=== PATIENT | female | born 1960 | race Caucasian/White ===

== ENCOUNTER 2016-09-22 09:18 | Day surgery (SDC) | payer BC ==
[2016-09-19 16:07] VITALS: BMI 28.4
--- NOTE | 2016-09-22 11:46 | OP ---
Operative Note - Note: Operative Date: 09/22/16 Pre-Operative Diagnosis: Right knee arthrofibrosis Operation: LUIS ANTONIO right knee Post-Operative Diagnosis: Same as Pre-op Surgeon: Rip Butcher Anesthesia: General Operative Report Dictated: Yes
--- NOTE | 2016-09-22 11:47 | DS ---
Physical Examination Vital Signs: Vital Signs Temperature 98.1 F 09/22/16 10:11 Pulse Rate 80 09/22/16 10:11 Respiratory Rate 19 09/22/16 10:11 Blood Pressure 131/79 09/22/16 10:11 O2 Sat by Pulse Oximetry (%) 98 09/22/16 10:11 Discharge Summary Reason For Visit: ARTHROFIBROSIS RIGHT KNEE Condition: Good - Instructions Diet, Activity, Other Instructions: Activity as tolerated Pain medication as tolerated Disposition: HOME - Home Medications Comprehensive Discharge Medication List: Ambulatory Orders Celecoxib [Celebrex] 100 mg PO DAILY PRN 09/19/16 Glucosamine HCl/Chondr Hsu A Na [Osteo Bi-Flex Caplet] 1 each PO BID 09/19/16
[2016-09-22] MEDS ORDERED: ONDANSETRON 4 MG/2 ML VIAL ONE (11:59)
[2016-09-22] MEDS ORDERED: ONDANSETRON 4 MG/2 ML VIAL IVPUSH ONE (12:02)
[2016-09-22] MEDS ORDERED: oxyCODONE HCL 5 MG TABLET ONE ×2 (12:58→13:21)
[2016-09-22 16:43] VITALS: BP 123/82; PULSE 77; TEMP 98
== END 2016-09-22 14:10 | disposition home or self-care (01) ==
LOC: FASU 09:18
PROVIDERS: ATTEND Orthopaedic Surgery
PROC: 0SNCXZZ Release Right Knee Joint, External Approach (ICD-10-PCS; principal; 2016-09-22 11:01)
DX: M24.661 Ankylosis, right knee (principal)
CPT/HCPCS: 94760

== ENCOUNTER 2023-12-26 06:08 | Day surgery (SDC) | payer BC ==
[2023-12-20 15:51] VITALS: BMI 27.6
[2023-12-26] MEDS ORDERED: ceFAZolin SODIUM 1 GM VIAL ONE (07:04)
[2023-12-26] MEDS ORDERED: TRANEXAMIC ACID 1000 MG/10 ML VIAL ONE ×2 (07:04→08:17)
[2023-12-26] MEDS ORDERED: PROPOFOL 20 ML ONE ×2 (07:04→09:30)
[2023-12-26] MEDS ORDERED: MIDAZOLAM HCL 2 MG/2 ML SINGLE DOSE VIAL ONE ×2 (07:05→08:33)
[2023-12-26] MEDS ORDERED: LIDOCAINE HCL/PF 2% SDV 5ML VIAL ONE (07:05)
[2023-12-26] MEDS ORDERED: BUPIVACAINE LIPOSOME/PF (EXPAREL) 266 MG/20 ML VIAL ONE (07:22)
[2023-12-26] MEDS ORDERED: BUPIVACAINE HCL/PF 0.5% (5 MG/ML) 30 ML VIAL IJ ONE (07:22)
[2023-12-26] MEDS ORDERED: BUPIVACAINE HCL/PF 0.5% (5MG/ML) 10 ML VIAL ONE (07:22)
[2023-12-26] MEDS ORDERED: ACETAMINOPHEN INJECTION 100 ML ONE (07:22)
[2023-12-26] MEDS ORDERED: ONDANSETRON 4 MG/2 ML VIAL ONE ×2 (08:17→08:18)
[2023-12-26] MEDS ORDERED: DEXAMETHASONE SOD PHOSPHATE 4 MG/1 ML VIAL ONE (08:17)
[2023-12-26] MEDS ORDERED: KETOROLAC TROMETHAMINE 30 MG/1 ML VIAL ONE (08:18)
[2023-12-26] MEDS ORDERED: MAG HYDROX/AL HYDROX/SIMETH 30 ML UNIT-DOSE CUP PO PRN (10:38)
[2023-12-26] MEDS ORDERED: MAGNESIUM HYDROX 2400MG/30ML ORAL SUSPENSION 30 ML CUP PO PRN (10:38)
[2023-12-26] MEDS ORDERED: ONDANSETRON 4 MG/2 ML VIAL IVPUSH PRN ×2 (10:38→10:40)
[2023-12-26] MEDS: SODIUM CHLORIDE 1,000 ML IV SCH (11:07)
[2023-12-26] MEDS: CEFAZOLIN 2 GM in DEXTROSE 5%-WATER - 100 ML IVPB ONE (12:52)
[2023-12-26] MEDS: LACTATED RINGERS SOLUTION 1,000 ML IV SCH (12:53)
[2023-12-26] MEDS: oxyCODONE HCL 5 MG TABLET PO PRN ×2 (13:54→23:44)
[2023-12-26] MEDS: CEFAZOLIN SODIUM 2 GM in DEXTROSE 5%-WATER 100 ML IVPB SCH (15:53)
[2023-12-26] MEDS: ACETAMINOPHEN 1000 MG/100 ML BAG IVPB SCH (16:58)
[2023-12-26 19:04] VITALS: RESP 18
[2023-12-26] MEDS: FAMOTIDINE 20 MG TABLET PO SCH (21:18)
[2023-12-26] MEDS: SENNOSIDES/DOCUSATE COMBO (SENNA PLUS) TABLET (UD) PO SCH (21:18)
[2023-12-26] MEDS: ASPIRIN 81 MG CHEWABLE TABLETS PO SCH (21:18)
[2023-12-26] MEDS: TRANEXAMIC ACID - 1,000 MG in SODIUM CHLORIDE 50 ML IVPB SCH (21:18)
[2023-12-26] MEDS: DEXAMETHASONE 4 MG TABLET (FP) PO SCH (21:18)
[2023-12-26] MEDS ORDERED: TRANEXAMIC ACID 1000 MG/10 ML VIAL IVPUSH SCH (22:00)
[2023-12-27] MEDS: CELECOXIB 200 MG CAPSULE PO SCH (09:08)
[2023-12-27 14:32] VITALS: BP 110/65; PULSE 72; TEMP 97.6
[2023-12-27] MEDS: ACETAMINOPHEN 500 MG TABLET (FP) PO SCH (14:42)
== END 2023-12-27 17:13 | disposition home or self-care (01) ==
LOC: SUATTDRO 06:08 → FASUSAT 06:08 → FM/S 11:52 → FASUSAT 12-27 17:13
PROVIDERS: ATTEND Orthopaedic Surgery
PROC: 0SRD0J9 Replacement of Left Knee Joint with Synthetic Substitute, Cemented, Open Approach (ICD-10-PCS; principal; 2023-12-26 08:20)
DX: M17.12 Unilateral primary osteoarthritis, left knee (principal)
CPT/HCPCS: 27447; C1776; 73560-TC-LT-FY; 94760; 97010-GP; 97116-GP; 97162-GP; J0131